=== PATIENT | female | born 1980 | race Caucasian/White ===

== ENCOUNTER → 2024-08-03 08:51 | Outpatient (REF) | payer BC, SELFPAY | LOC: WDC 08:51 | PROVIDERS: ATTENDING PHYSICIAN Physician Assistant Medical | DX: Z12.31 Encounter for screening mammogram for malignant neoplasm of breast (principal) | CPT/HCPCS: 77063; 77067 ==

== ENCOUNTER 2024-11-04 13:15 | Emergency (ER) | payer BC, SELFPAY ==
--- NOTE | 2024-11-04 13:37 | ED.GENMED ---
History of Present Illness
<Aldo Garibay PA-C - Last Filed: 11/05/24 11:47>
General
Chief Complaint: Dizziness
Source: patient
Time Seen by Provider: 11/04/24 13:26
History of Present Illness
History of Present Illness:
44-year-old female with no significant past medical history presenting to the emergency department for evaluation of rather acute onset of vertigo and a fullness sensation to her right ear earlier today, she does note maybe some fullness sensation
of the right ear the day prior. There is no headache, visual changes, focal weakness or numbness, visual disturbances, tinnitus or any other symptoms associated. Patient notes that her vertigo is exacerbated when looking right word as well as with
head movement and does seem to be mostly relieved with keeping her head still. Denies any recent illnesses or fevers. No other concerns and denies any history of similar
Past History
<Aldo Garibay PA-C - Last Filed: 11/05/24 11:47>
Past History
ED Past Medical History: None
ED Past Surgical History: None
Social History
Tobacco: Non-smoker
Alcohol: None
Drug: None
Personal:
Living: with family
Review of Systems
<Aldo Garibay PA-C - Last Filed: 11/05/24 11:47>
Review of Systems
All Other Systems: ROS reviewed and negative except as documented in HPI and ROS
Phy Exam
<Aldo Garibay PA-C - Last Filed: 11/05/24 11:47>
Physical Exam
Physical Exam:
GENERAL: Alert , in no apparent distress
EYE: pupils equal and reactive, 4 mm bilateral, rightward horizontal nystagmus with extraocular movements exacerbates patient's symptoms
NECK: Supple
ENT: o/p clr, mmm.
CARDIAC: Regular rate and rhythm .
LUNGS: Clear breath sounds bilaterally, no acute respiratory distress, no wheezes/rales/rhonchi
NEUROLOGICAL: Alert and oriented, no focal neuro deficits, no ataxia, no dysmetria, moves all extremities
SKIN: Warm and dry, skin intact.
MUSCULOSKELETAL: No edema, well perfused.
PSYCH: Normal and appropriate interaction.
Scores
<Aldo Garibay PA-C - Last Filed: 11/05/24 11:47>
Heart Failure Risk
Heart Failure Risk Score: Not Applicable
Heart Score for Chest Pain Patients
STEMI patient?: Not applicable
Withdrawal Assessment of Alcohol
Withdrawal Assessment Completed?: Not applicable
Course
<Aldo Garibay PA-C - Last Filed: 11/05/24 11:47>
Orders/Labs/Results
Orders:
Orders
11/04/24 13:36
CT Head W/o Iv Contrast Urgent
Comment:
Reason For Exam: vertigo
Meclizine [Antivert] 25 mg PO NOW STA
Ondansetron Orally Disint [Zofran Odt (Orally Disintegrating)] 4 mg PO NOW STA
Physical Therapy Consult [Pt Eval And Treat] Urgent
Treatment: vestibular therapy
Activity Level: Ambulate
11/04/24 13:54
Ondansetron Orally Disint [Zofran Odt (Orally Disintegrating)] 4 mg .ROUTE .[facility]
Vital Signs
Initial and Last Documented VS:
Initial Vital Signs
Temp Pulse Resp Pulse Ox
98.5 F 66 16 98
11/04/24 13:16 11/04/24 13:16 11/04/24 13:16 11/04/24 13:16
Last Documented Vital Signs
Temp Pulse Resp BP Pulse Ox
98.5 F 66 16 118/67 97
11/04/24 13:16 11/04/24 13:16 11/04/24 13:16 11/04/24 17:05 11/04/24 17:07
<Jeffery Eason PA-C - Last Filed: 11/04/24 22:31>
Orders/Labs/Results
Orders:
Orders
11/04/24 13:36
CT Head W/o Iv Contrast Urgent
Comment:
Reason For Exam: vertigo
Meclizine [Antivert] 25 mg PO NOW STA
Ondansetron Orally Disint [Zofran Odt (Orally Disintegrating)] 4 mg PO NOW STA
Physical Therapy Consult [Pt Eval And Treat] Urgent
Treatment: vestibular therapy
Activity Level: Ambulate
11/04/24 13:54
Ondansetron Orally Disint [Zofran Odt (Orally Disintegrating)] 4 mg .ROUTE .[facility]
Vital Signs
Initial and Last Documented VS:
Initial Vital Signs
Temp Pulse Resp Pulse Ox
98.5 F 66 16 98
11/04/24 13:16 11/04/24 13:16 11/04/24 13:16 11/04/24 13:16
Last Documented Vital Signs
Temp Pulse Resp BP Pulse Ox
98.5 F 66 16 118/67 97
11/04/24 13:16 11/04/24 13:16 11/04/24 13:16 11/04/24 17:05 11/04/24 17:07
<Adlo Garibay PA-C - Last Filed: 11/05/24 11:47>
MDM/Problems Addressed
Differential Diagnosis Includes:
BPPV, labyrinthitis, vestibular neuritis, cerebellar CVA, space-occupying lesion, intracranial bleeding
MDM/Problems Addressed:
44-year-old female presenting to the ER for evaluation of rather acute onset of vertigo and right ear fullness. Vertiginous symptoms exacerbated by head movement, she notes that holding her head to the left seems to help symptoms resolve but moving
her head to the right causes her increased vertigo. I do suspect BPPV/vestibular neuritis/labyrinthitis to be one of the most likely diagnoses. Discussed risk versus benefit of CT imaging and patient ultimately would prefer to have CT imaging
performed. Will treat with Antivert and Zofran due to patient's nausea. Physical therapy consult ordered for vestibular treatments.
<Aldo Garibay PA-C - Last Filed: 11/05/24 11:47>
*Pulse Oximetry
Patient hypoxic: no
<Jeffery Eason PA-C - Last Filed: 11/04/24 22:31>
*Critical Care Note
Total Time (30-74mins, 75-104mins- exclusive of procedures): Not Applicable
<Aldo Garibay PA-C - Last Filed: 11/05/24 11:47>
Comment
Comment:
Seen by physical therapy, agrees that symptoms are most likely related to labyrinthitis/vestibular neuritis. Given her symptoms are rather acute we will treat with a steroid taper. Awaiting head CT. Anticipate discharge home.
ED Attending Note
<Aldo Garibay PA-C - Last Filed: 11/05/24 11:47>
-
Portions of this chart may have been created with voice recognition software.� Occasional wrong word or��sound alike� substitutions may have occurred due to the inherent limitations of voice recognition software.
Discharge Plan
Departure
Patient Disposition: Home (Routine Discharge)
Date of Disposition: 11/04/24
Time of Disposition: 16:49
Patient with high blood pressure during this ER visit?: No
Discharge Problem:
Acute vestibular neuritis
Instructions: Vertigo (a Type of Dizziness) (DC)
Prescriptions:
New
methylprednisolone [Medrol (Valente)] 4 mg tablets,dose pack
4 mg PO DIRECTED Qty: 21 0RF
meclizine 25 mg tablet
25 mg PO BID PRN (Reason: dizziness) Qty: 10 0RF
No Action
ranitidine HCl [Zantac 75] 75 MG tablet
75 mg PO DAILY Qty: 20 0RF
diphenhydramine HCl [Banophen] 25 MG capsule
25 mg PO Q4HPRN PRN (Reason: rash, itching) Qty: 10 0RF
prednisone 50 MG tablet
50 mg PO DAILY Qty: 4 0RF
epinephrine [EpiPen] 0.3 MG/0.3/SYRINGE auto-injector
0.3 mg IM .STAT PRN (Reason: difficulty Breathing) Qty: 1 0RF
Referrals:
Tanja Raygoza PA-C [Family Provider] -
Wellington Paez MD [Active] - (ENT - as needed)
Interventions
Interventions:
*Risk Screen - Suicide Last Done: 11/04/24 13:16
*General Assessment Last Done: 11/04/24 14:02
*Neglect/Abuse Screening Last Done: 11/04/24 13:16
*ED- Fall Risk Assessment Last Done: 11/04/24 17:15
*ED COVID-19 Vaccine History Last Done: 11/04/24 14:02
*Nursing Disposition Last Done: 11/04/24 17:15
ED- Neurological Assessment Last Done: 11/04/24 14:03
ED- Cardiac Assessment Last Done: 11/04/24 14:02
ED Swallowing Screen Last Done: 11/04/24 13:30
Discharge Date and Time
Discharge Date/Time: 11/04/24 17:15
Print Language: [place]
[2024-11-04] MEDS: ANTIVERT 25 MG PO (14:00)
[2024-11-04] MEDS: ZOFRAN ODT (ORALLY DISINTEGRATING) 4 MG PO (14:00)
[2024-11-04 14:01] VITALS: BMI 33.2
[2024-11-04 14:07] VITALS: BP 107/66
[2024-11-04 14:44] VITALS: BP 100/61
[2024-11-04 15:00] VITALS: BP 106/63
[2024-11-04 15:27] VITALS: BP 100/61
[2024-11-04 17:05] VITALS: BP 118/67
== END 2024-11-04 17:15 | disposition home or self-care (01) ==
LOC: EMR 13:15
PROVIDERS: EMERGENCY PHYSICIAN Emergency Medicine; FAMILY PHYSICIAN Physician Assistant Medical
DX: H93.3X9 Disorders of unspecified acoustic nerve (principal)
CPT/HCPCS: 99284; 70450

== ENCOUNTER 2024-11-29 12:14 | Outpatient (RCR) | payer BC, SELFPAY | END 2024-11-29 23:59 | disposition home or self-care (01) | LOC: RPT 12:14 | PROVIDERS: ATTENDING PHYSICIAN Surgery; FAMILY PHYSICIAN Physician Assistant Medical | DX: H81.8X9 Other disorders of vestibular function, unspecified ear (principal); Z73.6 Limitation of activities due to disability; H53.8 Other visual disturbances; H93.13 Tinnitus, bilateral; R42 Dizziness and giddiness | CPT/HCPCS: 97112; 97161 ==